=== PATIENT | female | born 1965 | race Caucasian/White ===

== ENCOUNTER → 2017-10-25 10:26 | Outpatient (CLI) | payer OTHER, SELFPAY ==
--- NOTE | 2017-10-25 10:29 | HPBI_ITS ---
MAMMOGRAPHY - BILATERAL SCREENING REASON FOR EXAM: Female, 52 years old. Routine annual screening examination. PERTINENT HISTORY: Aunts with breast cancer. TECHNIQUE: Digital bilateral breast rahel (3D mammographic acquisition) in the CC and MLO projections. 2-D mediolateral oblique (MLO) and craniocaudad (CC) views of both breasts were obtained. CAD: Full Field Digital Mammography with Computer Added Detection was performed. COMPARISON: Comparison is made with prior examination dated October 22, 2016 and September 20, 2015. FINDINGS: Breast Composition: The breasts are extremely dense, which lowers the sensitivity of mammography. There are no dominant masses or suspicious calcifications. No other significant abnormalities are identified. There has been no significant change since the prior study. HPBI/SCREENING MAMM (CAD), BILAT IMPRESSION: Stable bilateral screening mammogram. Yearly follow-up mammogram recommended. (A) ASSESSMENT CATEGORY: BIRADS Category 1: Negative. A letter regarding these results will be sent to the patient by the facility within 30 days. Approximately 10% of breast cancers are not detected by mammography. A normal mammogram should not delay biopsy of a clinically suspicious abnormality. [id number] Electronically Signed: Arthur Garcia MD at 13:09 EST Tel [phone], Service support ,
== END ==
PROVIDERS: Family Provider Internal Medicine; PCP Internal Medicine; Visit Provider Obstetrics & Gynecology
DX: Z12.31 Encounter for screening mammogram for malignant neoplasm of breast (principal); Z85.3 Personal history of malignant neoplasm of breast
CPT/HCPCS: 77063; 77067

== ENCOUNTER → 2018-03-11 15:37 | Outpatient (CLI) | payer OTHER, SELFPAY ==
--- NOTE | 2018-03-11 | ASPS_PTH ---
PATIENT: ETTA ACOSTA LOC: [facility] U#:[id number] AGE/SX: 59/F ROOM: RE03/11/[address]: Dr. Lina Leija MD : 1965 BED: DIS: SPEC #: [id number] RECD: 03/11/18 11:01 STATUS: PATI LANIE #: [id number] MONICA: 03/11/18 00:[address]: Lina Leija DEPT: CYTOLOGY RECD BY: Fernie Tuttle Tissues: Nipple Procedures: Pap Stain (control) Special Stain Group II Cytology Other HEADER OPERATION: Not noted PRE-OP DIAGNOSIS: Discharge from left nipple N64.52 TISSUE SUBMITTED: Left nipple discharge 2 slides DIAGNOSIS CYTOLOGY Left nipple discharge (smears): Negative for malignant cells. See cytology study and comment. SJ:maryann 03/15/18 COMMENT Correlation with clinical findings and appropriate follow up are necessary. CYTOLOGY STUDY Slides are reviewed. The specimen predominantly consists of amorphous acellular material and a few macrophages. CYTOLOGY GROSS Received are two smears labeled with the patient's name and designated per the requisition as left nipple discharge. Submitted for staining. 03/14/18 TC:5 CPT: 09079
== END ==
PROVIDERS: Family Provider Internal Medicine; PCP Internal Medicine; Visit Provider Internal Medicine
DX: N64.52 Nipple discharge (principal)
CPT/HCPCS: 88161; 88313

== ENCOUNTER → 2018-03-15 13:48 | Outpatient (CLI) | payer OTHER, SELFPAY ==
--- NOTE | 2018-03-15 13:50 | US_ITS ---
STUDY: ULTRASOUND BREAST - LEFT REASON FOR EXAM: Female, 52 years old. PAIN , NIPPLE DISCHARGE , FULLNESS IN LT BREAST. PT ON ANTIBIOTICS MAMMO TODAY TECHNIQUE: Axial and longitudinal images of the LEFT breast were performed with a high resolution ultrasound transducer. COMPARISON: None. FINDINGS: LEFT Breast: Mildly dilated ducts are seen in the retroareolar region. There is no abnormal mass. There is no cyst formation. US/Breast Limited Unilateral IMPRESSION: Benign findings ASSESSMENT CATEGORY: BIRADS Category 2: Benign. A letter regarding these results will be sent to the patient by the facility within 30 days. Electronically Signed: Delmis Martinez MD at 19:47 EDT Tel , Service support ,
--- NOTE | 2018-03-15 13:50 | BI_ITS ---
MAMMOGRAPHY - UNILATERAL DIAGNOSTIC: LEFT BREAST REASON FOR EXAM: Female, 52 years old. PAIN IN THE LEFT BREAST AND AXILLARY REGION SINCE DECEMBER/JANUARY OF THIS YEAR DR CARR STATED LEFT LATERAL BREAST FULLNESS AND NIPPLE DISCHARGE [place] COLOR 03/11/18 PT IS NOW ON ANTIBIOTICS FOR POSSIBLE INFECTION SINCE WEDNESDAY, PAIN IS NOW MORE IN THE LATERAL BREAST RATHER THAN THE AXILLARY REGION TODAY . NO PREV SURG'S. PERTINENT HISTORY: [employer] HX 3 MAT AUNTS AGES 40S TECHNIQUE: Digital unilateral breast rahel (3D mammographic acquisition) in the CC and MLO projections. 2-D mediolateral oblique (MLO) and craniocaudad . Magnification view of the retroareolar lesion. CAD: Full Field Digital Mammography with Computer Added Detection was performed. COMPARISON: Oct 25 2017 10:46am, Oct 22 2016 3:00pm, Sep 20 2015 8:55am FINDINGS: Breast Composition: The breasts are extremely dense, which lowers the sensitivity of mammography. There are no dominant masses or suspicious calcifications. Multiple benign-appearing round and punctate calcifications are seen scattered in the left breast. No other significant abnormalities are identified. BI/DIAG MAMM W/CAD, UNILAT IMPRESSION: Stable unilateral diagnostic mammogram. Ultrasound evaluation of the painful area in the left breast is recommended and is performed in the same day. ASSESSMENT CATEGORY: BIRADS Category 0: Incomplete. Need additional imaging evaluation. A letter regarding these results will be sent to the patient by the facility within 30 days. Approximately 10% of breast cancers are not detected by mammography. A normal mammogram should not delay biopsy of a clinically suspicious abnormality. Electronically Signed: Delmis Martinez MD at 19:55 EDT Tel , Service support ,
== END ==
PROVIDERS: Family Provider Internal Medicine; PCP Internal Medicine; Visit Provider Internal Medicine
DX: N63.0 Unspecified lump in unspecified breast (principal); N64.52 Nipple discharge
CPT/HCPCS: 76642; 77062; 77065; G0279

== ENCOUNTER → 2018-03-24 09:28 | Outpatient (CLI) | payer OTHER, SELFPAY ==
--- NOTE | 2018-03-24 10:00 | MRI_ITS ---
STUDY: BILATERAL BREAST MR WITHOUT AND WITH CONTRAST REASON FOR EXAM: Female, 52 years old. Dense breast tissue with left breast pain and swelling. TECHNIQUE: Multi-sequence multi-echo imaging of both breasts was performed with a dedicated breast coil. T1-weighted and T2-weighted images were performed before the administration of contrast. T1-weighted images were also performed after the administration of 6 mL of Gadavist contrast intravenously without complications. COMPARISON: Ultrasound of the left breast dated March 15, 2018, diagnostic mammogram of the left breast dated March 15, 2018 and bilateral mammogram dated October 25, 2017. FINDINGS: RIGHT BREAST: The breast tissue is heterogeneously dense with no background enhancement. There are no abnormal enhancing masses or areas of non-mass enhancement in the right breast. LEFT BREAST: The breast tissue is heterogeneously dense with no background enhancement. There are no abnormal enhancing masses or areas of non-mass enhancement in the left breast. There are no enlarged or abnormal lymph nodes. There is no abnormality in the visualized regions of the chest or liver. MRI/Breast w/o and/or W Cont Bilat IMPRESSION: Unremarkable breast MR examination with contrast. CATEGORY: BIRADS Category 2: Benign. A letter regarding these results will be sent to the patient by the facility within 30 days. Electronically Signed: Anthony Freeman MD at 16:33 EDT , Service support ,
== END ==
PROVIDERS: Family Provider Internal Medicine; PCP Internal Medicine; Visit Provider Internal Medicine
DX: N63.20 Unspecified lump in the left breast, unspecified quadrant (principal); R92.2 Inconclusive mammogram; N64.4 Mastodynia
CPT/HCPCS: 77059; A9585; A4216; C8908

== ENCOUNTER → 2018-10-31 10:52 | Outpatient (CLI) | payer OTHER, SELFPAY ==
[2018-08-09 13:52] VITALS: BMI 23.3
--- NOTE | 2018-10-31 10:54 | BI_ITS ---
MAMMOGRAPHY - BILATERAL SCREENING REASON FOR EXAM: Female, 53 years old. Routine annual screening examination. PERTINENT HISTORY: Aunts with breast cancer. TECHNIQUE: Digital bilateral breast rahel (3D mammographic acquisition) in the CC and MLO projections. 2-D mediolateral oblique (MLO) and craniocaudad (CC) views of both breasts were obtained. CAD: Full Field Digital Mammography with Computer Added Detection was performed. COMPARISON: Comparison is made with prior examination dated October 25, 2017 and October 22, 2016. FINDINGS: Breast Composition: The breasts are extremely dense, which lowers the sensitivity of mammography. There are no dominant masses or suspicious calcifications. Stable scattered microcalcifications in the left breast. No other significant abnormalities are identified. There has been no significant change since the prior study. BI/SCREENING MAMM (CAD), BILAT IMPRESSION: Stable bilateral screening mammogram. Yearly follow-up mammogram recommended. (A) ASSESSMENT CATEGORY: BIRADS Category 2: Benign. A letter regarding these results will be sent to the patient by the facility within 30 days. Approximately 10% of breast cancers are not detected by mammography. A normal mammogram should not delay biopsy of a clinically suspicious abnormality. [id number] Electronically Signed: Arthur Garcia, at 13:08 EDT , Service support ,
== END ==
PROVIDERS: Family Provider Internal Medicine; PCP Internal Medicine; Referring Provider Obstetrics & Gynecology; Visit Provider Obstetrics & Gynecology
DX: Z12.31 Encounter for screening mammogram for malignant neoplasm of breast (principal)
CPT/HCPCS: 77063; 77067

== ENCOUNTER → 2020-01-31 12:56 | Outpatient (CLI) | payer OTHER, SELFPAY ==
[2019-04-14 14:42] VITALS: BMI 23.3
--- NOTE | 2020-01-31 12:59 | BI_ITS ---
MAMMOGRAPHY - BILATERAL SCREENING REASON FOR EXAM: Female, 54 years old. Routine annual screening examination. PERTINENT HISTORY: Aunts with breast cancer. Occasional bilateral nipple discharge. TECHNIQUE: Digital bilateral breast augusto (3D mammographic acquisition) in the CC and MLO projections. 2-D mediolateral oblique (MLO) and craniocaudad (CC) views of both breasts were obtained. CAD: Full Field Digital Mammography with Computer Added Detection was performed. COMPARISON: Comparison is made with prior study dated October 31, 2018 and October 25, 2017. FINDINGS: Breast Composition: The breasts are extremely dense, which lowers the sensitivity of mammography. There are no dominant masses or suspicious calcifications. Stable scattered calcifications in the left breast. No other significant abnormalities are identified. There has been no significant change since the prior study. BI/SCREEN MAMM (CAD) W/[place] BILAT IMPRESSION: Stable bilateral screening mammogram. Yearly follow-up mammogram recommended. (A) ASSESSMENT CATEGORY: BIRADS Category 2: Benign. A letter regarding these results will be sent to the patient by the facility within 30 days. Approximately 10% of breast cancers are not detected by mammography. A normal mammogram should not delay biopsy of a clinically suspicious abnormality. [id number] Electronically Signed: Arthur Garcia, at 13:53 EDT , Service support ,
== END ==
PROVIDERS: Family Provider Internal Medicine; PCP Internal Medicine; Referring Provider Internal Medicine; Visit Provider Internal Medicine
DX: Z12.31 Encounter for screening mammogram for malignant neoplasm of breast (principal)
CPT/HCPCS: 77063; 77067

== ENCOUNTER 2021-09-01 16:27 | Outpatient (CLI) | payer BC, SELFPAY ==
[2021-09-01] MEDS: 0.9% Saline Lock 10 ML Syringe IV (16:43)
[2021-09-01 16:45] VITALS: BP 169/93; PULSE 75; RESP 16; TEMP 36.9; O2SAT 100; BMI 23.9
[2021-09-01 17:30] VITALS: BP 143/88; PULSE 71; RESP 16; TEMP 36.9; O2SAT 100
[2021-09-01 18:28] VITALS: BP 152/84; PULSE 71; RESP 16; TEMP 36.8; O2SAT 100
== END 2021-09-01 23:59 | disposition home or self-care (01) ==
LOC: MS3OUT 16:27 → MS3 16:28
PROVIDERS: PCP Internal Medicine; Referring Provider Nurse Practitioner Adult Health; Visit Provider Nurse Practitioner Adult Health
DX: U07.1 COVID-19 (principal)
CPT/HCPCS: J7050; M0243; A4216; Q0244

== ENCOUNTER 2022-10-16 13:43 | Outpatient (CLI) | payer OTHER, SELFPAY ==
--- NOTE | 2022-10-16 13:47 | ECHOD_ITS ---
Reason For Study: HLD Procedure This was a 2D Doppler, Color Flow transthoracic echocardiogram. Exam performed in department. Left Ventricle Normal LV size. The estimated ejection fraction is 45 %. Stage 1 diastolic dysfunction. There is mild global hypokinesis of the left ventricle. Right Ventricle Normal RV size. Normal systolic function. Atria Normal left atrium. Normal right atrium. Mitral Valve Normal mitral valve. Tricuspid Valve Normal tricuspid valve. Aortic Valve Normal aortic valve. Trisinus/trileaflet aortic valve. Pulmonic Valve Normal pulmonic valve. Great Vessels Normal aortic root. The pulmonary artery is normal size. Normal inferior vena cava. Pericardium/Pleural No pericardial effusion. MMode/2D Measurements & Calculations LVIDd: 6.0 cm IVSd: 0.80 cm Ao root diam: 2.2 cm LVIDs: 4.9 cm LVPWd: 0.79 cm RVDd: 2.8 cm FS: 19.3 % LAV(MOD-sp4): 52.2 ml LVAd ap4: 29.7 cm2 SV(MOD-sp4): 43.9 ml LVLd ap4: 8.8 cm EDV(MOD-sp4): 86.3 ml EDV(sp4-el): 85.0 ml LVAs ap4: 18.4 cm2 LVLs ap4: 7.2 cm ESV(MOD-sp4): 42.4 ml ESV(sp4-el): 40.1 ml EF(MOD-sp4): 50.9 % EF(sp4-el): 52.8 % SV(sp4-el): 44.9 ml LA A4 area: 19.4 cm2 LA dimension(2D): 4.0 cm RA A4 area: 10.9 cm2 Time Measurements MV dec time: 0.10 sec Doppler Measurements & Calculations MV E max dwain: 93.3 cm/sec Lat Peak E' Dwain: 14.0 cm/sec Med Peak E' Dwain: 7.9 cm/sec MV A max dwain: 98.3 cm/sec E/E' lat: 6.6 E/E' med: 11.8 MV E/A: 0.95 MV V2 max: 95.9 cm/sec Ao V2 max: 145.0 cm/sec MV max P.7 mmHg MV dec slope: 967.8 cm/sec2 Ao max P.4 mmHg MV V2 mean: 63.6 cm/sec Ao V2 mean: 95.6 cm/sec MV mean P.9 mmHg Ao mean P.2 mmHg MV V2 VTI: 29.4 cm Ao V2 VTI: 30.9 cm AV (velocity ratio): 0.87 LV V1 max: 121.9 cm/sec MR max dwain: 457.6 cm/sec PA V2 max: 91.4 cm/sec LV V1 max P.9 mmHg MR max P.8 mmHg PA V2 mean: 73.0 cm/sec LV V1 mean P.2 mmHg MR mean dwain: 356.1 cm/sec LV V1 mean: 83.6 cm/sec MR mean P.5 mmHg LV V1 VTI: 27.0 cm MR VTI: 197.8 cm ECHO/Echo Complete Interpretation Summary Normal LV size. The estimated ejection fraction is 45 %. There is mild global hypokinesis of the left ventricle. Stage 1 diastolic dysfunction. The global longitudinal strain is borderline abnormal. Ordering Physician: Lina Leija Referring Physician: Lina Leija M.D. Performed By: Jasmyne Sharp RCS
== END 2022-10-16 23:59 | disposition home or self-care (01) ==
PROVIDERS: PCP Internal Medicine; Visit Provider Internal Medicine
DX: R01.1 Cardiac murmur, unspecified (principal); E78.5 Hyperlipidemia, unspecified; I51.9 Heart disease, unspecified
CPT/HCPCS: 93306

== ENCOUNTER → 2025-07-10 | Outpatient (CLI) | payer BC, SELFPAY ==
[2025-07-10 15:19] LABS: Hematocrit 36.9 % (37-47); Hemoglobin 11.8 g/dL (12.0-15.0); Immature Granulocytes Count 0.010 X10^3/uL (0.0-0.0); Mean Corp Hgb Conc 32.0 g/dL (32-36); Mean Corpuscular Volume 99.2 fL (81-99); Mean Platelet Vol. 10.4 fl (6.2-12.0); NRBC Flagged by Analyzer 0 % (0-5); Platelet Count 303 K/mm3 (150-450); RBC Distribution Width CV 14.6 % (11.6-14.6); RBC Distribution Width SD 52.9 fl (35.1-43.9); Red Blood Count 3.72 M/mm3 (4.2-5.4); White Blood Count 4.6 K/mm3 (4.4-11.0)
[2025-07-10 16:01] LABS: AST(SGOT) 30 U/L (<=31); Alanine Aminotransfer ALT/SGPT 39 U/L (<=34); Albumin, Serum 4.5 g/dL (3.4-4.8); Alkaline Phosphatase 78 U/L (35-104); Anion Gap 11 (5-15); BUN 13 mg/dL (4-19); BUN/Creat Ratio 20.6 RATIO (10-20); Calcium,Total 9.4 mg/dL (7.6-11.0); Carbon Dioxide 26.8 mmol/L (21.0-32.0); Chloride 101 mmol/L (98-108); Globulin 2.8 g/dL (2.2-4.2); Glucose 83 mg/dL (70-99); Potassium 4.2 mmol/L (3.3-5.1)
== END | disposition home or self-care (01) ==
LOC: CIMLAB 11:39
PROVIDERS: PCP Internal Medicine; Referring Provider Internal Medicine; Visit Provider Internal Medicine
DX: E03.9 Hypothyroidism, unspecified (principal)
CPT/HCPCS: 36415; 80053; 84443; 85025